=== PATIENT | female | born 1930 | race Caucasian/White ===

== ENCOUNTER 2017-10-04 18:49 | Emergency (ER) | payer MEDICARE, MEDICAID ==
--- NOTE | 2017-10-04 19:33 | NUR ---
BREATHING TREATMENT GIVEN BACK TO BACK FOR WHEEZING AND SOB. BREATHING TECH. FOR GGOOD DEPOSITION TO THE LUNGS.
[2017-10-04 19:44] LABS: HEMATOCRIT 41.7 % (37.0-47.0); HEMOGLOBIN 14.2 g/dl (12.0-16.0); IMMATURE GRANULOCYTES 0.7 % (0.0-1.0); MEAN CELL VOLUME 99.5 fL CALC (80.0-100.0); MEAN CORPUSCULAR HGB 33.9 pG CALC (26.0-32.0); MEAN CORPUSCULAR HGB CONC 34.1 g/L CALC (32.0-36.0); NEUT# 5.49 thou/uL (2.00-7.15); RED BLOOD COUNT 4.19 mill/uL (4.20-5.60); RED CELL DISTRI WIDTH 12.3 % (11.5-15.5)
[2017-10-04 19:50] LABS: ALBUMIN 4.6 g/dL (3.2-5.0); ALKALINE PHOSPHATASE 69 u/l (38-126); ANION GAP 17 (6-22 (CALC)); BILIRUBIN, TOTAL 0.7 mg/dL (0.0-1.4); BUN 19 mg/dL (8-23); BUN/CREATININE RATIO 18 (12-20 (CALC)); CARBON DIOXIDE 28 mmol/l (22-30); CHLORIDE 97 mmol/l (95-108); CREATININE 1.1 mg/dL (0.5-1.0); GFR 47 ML/MIN (>=60 (CALC)); GFR FOR AFR.AMER. 57 ML/MIN (>=60 (CALC)); POTASSIUM 3.3 mmol/l (3.5-5.1); SGOT/AST 33 u/l (9-36); SGPT/ALT 31 u/l (11-66); SODIUM 137 mmol/l (137-146); TOTAL PROTEIN 8.4 g/dL (6.3-8.2)
[2017-10-04] MEDS ORDERED: AMLODIPINE5 MG PO (19:50)
[2017-10-04] MEDS ORDERED: B121000 MCG PO (19:51)
[2017-10-04] MEDS ORDERED: HYDROCHLOROTH12.5 MG PO (19:52)
[2017-10-04] MEDS ORDERED: LOSARTAN POT25 MG PO (19:53)
[2017-10-04] MEDS ORDERED: MAGNESIUM400 M1 PO (19:54)
[2017-10-04] MEDS ORDERED: POTASSIUM CHLO10 MEQ PO (19:55)
[2017-10-04] MEDS ORDERED: VITAMIN D32000 UNIT PO (19:56)
[2017-10-04 20:02] LABS: MYOGLOBIN 151 ng/mL (0 - 62)
[2017-10-04] MEDS ORDERED: PREDNISONE10 MG PO (21:12)
[2017-10-04] MEDS ORDERED: VENTOLIN HFA IN (21:12)
[2017-10-04 21:31] VITALS: BP 140/70
== END 2017-10-04 21:30 | disposition home or self-care (01) ==
LOC: ED 18:49
PROVIDERS: Family Medicine
DX: J98.01 Acute bronchospasm (principal); R06.02 Shortness of breath; R05 Cough; R21 Rash and other nonspecific skin eruption

== ENCOUNTER 2019-05-14 06:22 | Observation (INO) | payer MEDICARE ==
[~2019-05-14] VITALS: Ht 154.9 cm; Wt 77.7 kg
[~2019-05-14 06:22] MED LIST: AMLODIPINE5 MG PO; B121000 MCG PO; HYDROCHLOROTH12.5 MG PO; LOSARTAN POT25 MG PO; MAGNESIUM400 M1 PO; POTASSIUM CHLO10 MEQ PO; PREDNISONE10 MG PO; VENTOLIN HFA IN; VITAMIN D32000 UNIT PO
--- NOTE | 2019-05-14 06:50 | NUR ---
PATIENT TO ROOM 15 VIA WHEELCHAIR. TRIAGE [id number] AT BEDSIDE. AWAITING MD PORRAS.
--- NOTE | 2019-05-14 07:25 | NUR ---
INITATED O2@2LPM VIA NCC FOR SOB AND O2 SAT 89%. PT TOLERATING WELL
[2019-05-14 08:21] LABS: HEMATOCRIT 41.6 % (37.0-47.0); HEMOGLOBIN 14.1 g/dl (12.0-16.0); IMMATURE GRANULOCYTES 0.6 % (0.0-5.0); MEAN CELL VOLUME 97.9 fL CALC (80.0-100.0); MEAN CORPUSCULAR HGB 33.2 pG CALC (26.0-32.0); MEAN CORPUSCULAR HGB CONC 33.9 g/L CALC (32.0-36.0); NEUT# 3.12 thou/uL (2.00-7.15); RED BLOOD COUNT 4.25 mill/uL (4.20-5.60)
[2019-05-14 08:36] LABS: ALBUMIN 4.4 g/dL (3.2-5.0); ALKALINE PHOSPHATASE 59 u/l (38-126); ANION GAP 16 (6-22 (CALC)); BILIRUBIN, TOTAL 0.6 mg/dL (0.0-1.4); BUN 22 mg/dL (8-23); BUN/CREATININE RATIO 17 (12-20 (CALC)); CARBON DIOXIDE 28 mmol/l (22-30); CHLORIDE 96 mmol/l (95-108); CREATININE 1.3 mg/dL (0.5-1.0); GFR 39 ML/MIN (>=60 (CALC)); GFR FOR AFR.AMER. 47 ML/MIN (>=60 (CALC)); LIPASE 52 u/l (23-300); POTASSIUM 3.8 mmol/l (3.5-5.1); SGOT/AST 42 u/l (9-36); SODIUM 137 mmol/l (137-146); TOTAL PROTEIN 7.6 g/dL (6.3-8.2)
--- NOTE | 2019-05-14 09:10 | NUR ---
PT RESTING WITH HOB ELEVATED IN NO DISTRESS. VSS. IV ABT INFUSING
--- NOTE | 2019-05-14 09:17 | NUR ---
MD AT BEDSIDE. PT AWARE SHE WILL BE ADMITTED TO THE HOSPITAL. ABX STARTED. PT REPORTS FEELING MUCH BETTER. AT BEDSIDE
--- NOTE | 2019-05-14 10:31 | NUR ---
BELONGINGS SENT HOME WITH PTS . PT AWARE OF WAIT FOR BED ASSIGNMENT. POSITIONED FOR COMFORT.
[2019-05-14 10:40] LABS: URINE BILIRUBIN - DIPSTICK NEGATIVE (NEGATIVE); URINE BLOOD DIPSTICK NEGATIVE (NEGATIVE); URINE COLOR YELLOW; URINE GLUCOSE - DIPSTICK NEGATIVE (NEGATIVE); URINE KETONE TRACE mg/dL (NEGATIVE); URINE LEUK ESTERASE NEGATIVE (NEGATIVE); URINE PH 5.5 (4.5-8.0); URINE PROTEIN - DIPSTICK NEGATIVE (NEG-TRACE); URINE SPECIFIC GRAVITY 1.025; URINE UROBILINOGEN - DIPSTICK 0.2 E.U./dL (0.2)
[2019-05-14 10:46] LABS: URINE NITRITE - DIPSTICK POSITIVE (Negative)
[2019-05-14 10:47] LABS: URINE BACTERIA MANY hpf; URINE EPITHELIAL CELLS MODERATE EPI/hpf (0-FEW)
--- NOTE | 2019-05-14 11:28 | NUR ---
PT RESTING COMFORTABLY WATCHING TV
--- NOTE | 2019-05-14 12:05 | NUR ---
MED SURG UNABLE TO TAKE REPORT AT THIS TIME
--- NOTE | 2019-05-14 12:25 | NUR ---
REPORT GIVEN TO RED OSHEAHEAD REFRIGERATION ENGINEER
--- NOTE | 2019-05-14 12:36 | NUR ---
PT ARRIVED FROM ER VIA STRETCEHR NO MASK IN [facility] WITH POSITIVE FOR THE FLU
--- NOTE | 2019-05-14 12:44 | NUR ---
PT TRANSPORTED TO MED SURG VIA STRETCHER, O2 AND TELEMETRY IN PLACE.
[2019-05-14 12:47] VITALS: BP 177/82
--- NOTE | 2019-05-14 13:55 | NUR ---
ASSESSMENT IS COMPLETED; IV SITE IS FREE FROM REDNESS OR EDEMA. HR IS REG,PULSES ARE STRONG X4, ABD IS SOFT WITH ACTIVE BS. BREATH SOUNDS ARE CLEAR,BILATERALLY, PT BECOMES SOB ON EXERTION. PT ALSO HAS POST NASAL DRIP. NO COUGHING PER PT. TELE MONITOR IN PLACE. CALL AVILES WITHIN REACH. CONTINUE TO OSBERVE AND MONITOR. PT IS POSITIVE FOR THE FLU UNDERSTANDS RE: DROPLET PRECAUTIONS.
[2019-05-14 15:15] VITALS: BP 141/78
--- NOTE | 2019-05-14 16:00 | NUR ---
PT IS RELAXING IN BED WITH NO DISTRESS NOTED. IV SITE IS FREE FROM REDNESS OR EDEMA.
[2019-05-14 19:26] VITALS: BP 141/71
--- NOTE | 2019-05-14 21:25 | NUR ---
PT MEDICATED AND ASSESSMENT COMPLETED AT THIS TIME. PT C/O SLIGHT HEADACHE, BUT DENIED TYLENOL NEED. MEDICATED FOR SLEEP AT THIS TIME ALSO PER REQUEST AND IVF REPLENISHED. NO S/O DISTRESS NOTED. CALL LIGHT IN HAND, LIGHTS ON LOW AND TV ON.
[2019-05-14 23:35] VITALS: BP 121/60
--- NOTE | 2019-05-15 01:50 | NUR ---
PT ASSISTED TO RESTROOM AND BACK TO BED. NO S/O DISTRESS NOTED. CALL LIGHT IN PLACE
[2019-05-15 03:25] VITALS: BP 143/59
--- NOTE | 2019-05-15 04:18 | NUR ---
PT IV PUMP CLEARED AT THIS TIME. IVF RUNNING TO 20LAC/SITE APPEARS HEALTHY. PT WAS SLEEPING I ENTERED THE ROOM. LIGHTS AND TV ARE ON. NO S/O DISTRESS NOTED.
[2019-05-15 07:46] VITALS: BP 136/80
--- NOTE | 2019-05-15 08:35 | NUR ---
ASSESSMENT DONE. PT IS A&O X3. TELE IN PLACE. IVF INFUSING WELL. LUNGS SOUND COARSE. SAFETY PRECAUTIONS REINFORCED AND CALL LIGHT IN REACH.
[2019-05-15 10:42] VITALS: BP 127/72
--- NOTE | 2019-05-15 11:15 | NUR ---
ASSISTED PT TO SIT IN CHAIR. PT STATED SHE FELT LITTLE BIT DIZZY BUT STATED ITS NOT NEW. PT DENIES PAIN AT THIS TIME. CALL LIGHT IN REACH.
[2019-05-15 15:15] VITALS: BP 142/81
--- NOTE | 2019-05-15 16:00 | NUR ---
PT IS RESTING IN BED . PT DENIES ANY NEEDS AT THIS TIME. CALL LIGHT IN REACH.
--- NOTE | 2019-05-15 19:05 | NUR ---
REPORT FROM LÁZARO OSHEA. PT SITTING UP IN BED. ALERT AND ORIENTED. NO APPARENT DISTRESS NOTED. PT DENIES ANY PAIN OR DISCOMFORT. IV SITE APPEARS HEALTHY. DISCUSSED POC. PT VERBALIZED UNDERSTANDING. CALL LIGHT WITHIN REACH. WILL CONTINUE TO MONITOR.
[2019-05-15 20:00] VITALS: BP 138/74
--- NOTE | 2019-05-15 21:03 | NUR ---
PT MEDICATED FOR MILD BACK PAIN AND SLEEPING PILL PER REQUEST. PT DENIES ANY OTHER WANTS OR NEEDS. CALL LIGHT WITHIN REACH. WILL CONTINUE TO MONITOR.
[2019-05-16] VITALS: BP 121/76
--- NOTE | 2019-05-16 01:22 | NUR ---
PT RESTING IN BED WITH EYES CLOSED. NO APPARENT DISTRESS NOTED. CALL LIGHT WITHIN REACH. WILL CONTINUE TO MONITOR.
--- NOTE | 2019-05-16 04:21 | NUR ---
PT RESTING IN BED WITH EYES CLOSED. NO APPARENT DISTRESS NOTED. CALL LIGHT WITHIN REACH. WILL CONTINUE TO MONITOR.
[2019-05-16 04:30] VITALS: BP 137/70
[2019-05-16 05:05] LABS: HEMATOCRIT 36.9 % (37.0-47.0); HEMOGLOBIN 12.6 g/dl (12.0-16.0); IMMATURE GRANULOCYTES 0.7 % (0.0-5.0); MEAN CELL VOLUME 98.1 fL CALC (80.0-100.0); MEAN CORPUSCULAR HGB 33.5 pG CALC (26.0-32.0); MEAN CORPUSCULAR HGB CONC 34.1 g/L CALC (32.0-36.0); NEUT# 1.46 thou/uL (2.00-7.15); RED BLOOD COUNT 3.76 mill/uL (4.20-5.60); RED CELL DISTRI WIDTH 12.2 % (11.5-15.5)
[2019-05-16 05:23] LABS: ANION GAP 13 (6-22 (CALC)); BUN 14 mg/dL (8-23); BUN/CREATININE RATIO 14 (12-20 (CALC)); CARBON DIOXIDE 25 mmol/l (22-30); CHLORIDE 103 mmol/l (95-108); GFR 53 ML/MIN (>=60 (CALC)); GFR FOR AFR.AMER. > 60 ML/MIN (>=60 (CALC)); MAGNESIUM 1.5 mg/dL (1.6-2.3); POTASSIUM 3.6 mmol/l (3.5-5.1); SODIUM 137 mmol/l (137-146)
--- NOTE | 2019-05-16 07:50 | NUR ---
ASSESSMENT IS COMPLETED: IV SITE IS FREE FROM REDNESS OR EDEMA. HR IS REG,PULSES ARE STRONG X4, ABD IS SOFT WITH ACTIVE BS, BREATH SOUNDS ARE SCATTERED WHEEZES NOTED.TELE MONITOR IN PLACE. CONTINUE TO OSBERVE AND MONITOR.
[2019-05-16 11:00] VITALS: BP 125/63
--- NOTE | 2019-05-16 11:01 | NUR ---
pt c/o loose stools from abt. gave medication for nausea. continue to observe and monitor.
--- NOTE | 2019-05-16 12:00 | NUR ---
PT IS RELAXING IN BED WITH NO DISTRESS NOTED. IV SITE IS FREE FROM REDNESS OR EDEMA. PT AMBULATED IN THE DIOP WITH NO DISTRESS NOTED. O2 WALK WITH 92% ON RA. TOLERATED WELL.
[2019-05-16] MEDS ORDERED: TAMIFLU SUSP 6MG/ML PO (12:28)
[2019-05-16] MEDS ORDERED: LEVAQUIN250 MG PO (12:29)
[2019-05-16] MEDS ORDERED: ZOFRAN4 MG/TAB PO (12:30)
[2019-05-16 15:18] VITALS: BP 147/74
--- NOTE | 2019-05-16 15:59 | NUR ---
IV SITE DISCONTINUED CATHETER INTACT NO REDNESS OR EDEMA. FAMILY IN THE ROOM.
--- NOTE | 2019-05-16 16:29 | NUR ---
DISCHARGE INSTRUCTIONS GIVEN AND VERBALIZED UNDERSTANDING. FAMILY IN TO VISIT WITH PT, TRANSPORTED VIA WC ALL BELONGINGS SENT WITH PT. PT VERY APPRECIATIVE OF ALL OF THE STAFF ASSISTANCE. CONTINUE TO OSBERVE AND MONITOR. Discharge instructions given. Patient verbalizes understanding of same. Discharged in stable condition via Wheelchair to Home with family. All belongings sent with pt.
--- NOTE | 2019-05-21 13:44 | NUR ---
Pneumonia D/C call completed 05/21/19 1:15 pm. Pt. much improved. Obtained medication prescribed on discharge and is taking without issue. Follow up appt scheduled with PCP on 05/29. Very complimentary of care by staff and physician. No needs expressed.
== END 2019-05-16 16:20 | disposition home or self-care (01) ==
LOC: ED 06:22 → ED-I 09:05 → ED 09:53 → MS2 09:54
PROVIDERS: Family Medicine; Nurse Practitioner Family; ADMIT Internal Medicine; ATTEND Internal Medicine
DX: J10.00 Influenza due to other identified influenza virus with unspecified type of pneumonia (principal); N39.0 Urinary tract infection, site not specified; R09.02 Hypoxemia; I12.9 Hypertensive chronic kidney disease with stage 1 through stage 4 chronic kidney disease, or unspecified chronic kidney disease; N18.3 Chronic kidney disease, stage 3 (moderate); M19.90 Unspecified osteoarthritis, unspecified site; N39.3 Stress incontinence (female) (male); B96.20 Unspecified Escherichia coli [E. coli] as the cause of diseases classified elsewhere
CPT/HCPCS: G0378; J3475

== ENCOUNTER 2020-11-12 04:05 | Emergency (ER) | payer MEDICARE ==
[~2020-11-12] VITALS: Ht 154.9 cm; Wt 82.0 kg
[~2020-11-12 04:05] MED LIST changes: +AMLODIPINE BESY10 MG PO; -AMLODIPINE5 MG PO; +COZAAR50 MG PO; +LEVAQUIN250 MG PO; -LOSARTAN POT25 MG PO; +TAMIFLU SUSP 6MG/ML PO; +ZOFRAN4 MG/TAB PO
[2020-11-12] MEDS ORDERED: BENADRYL 25MG C25 MG PO (04:36)
[2020-11-12 05:17] LABS: HEMATOCRIT 41.3 % (37.0-47.0); HEMOGLOBIN 14.2 g/dl (12.0-16.0); IMMATURE GRANULOCYTES 0.8 % (0.0-5.0); MEAN CELL VOLUME 99.5 fL CALC (80.0-100.0); MEAN CORPUSCULAR HGB 34.2 pG CALC (26.0-32.0); MEAN CORPUSCULAR HGB CONC 34.4 g/dL CAL (32.0-36.0); NEUT# 5.95 thou/uL (2.00-7.15); RED BLOOD COUNT 4.15 mill/uL (4.20-5.60); RED CELL DISTRI WIDTH 11.7 % (11.5-15.5)
[2020-11-12 05:35] LABS: D-DIMER 0.8 mg/L (0.19-0.60)
[2020-11-12 05:36] LABS: ALBUMIN 4.6 g/dL (3.2-5.0); ALKALINE PHOSPHATASE 84 u/l (38-126); ANION GAP 15 (6-22 (CALC)); BILIRUBIN, TOTAL 0.6 mg/dL (0.0-1.4); BUN 22 mg/dL (8-23); BUN/CREATININE RATIO 16 (12-20 (CALC)); CARBON DIOXIDE 26 mmol/l (22-30); CHLORIDE 99 mmol/l (95-108); CREATININE 1.4 mg/dL (0.5-1.0); GFR 35 ML/MIN (>=60 (CALC)); GFR FOR AFR.AMER. 43 ML/MIN (>=60 (CALC)); SGOT/AST 43 u/l (9-36); SODIUM 136 mmol/l (137-146); TOTAL PROTEIN 7.9 g/dL (6.3-8.2)
[2020-11-12 05:48] LABS: MYOGLOBIN 75 ng/mL (0 - 62)
[2020-11-12 05:50] LABS: ACT PARTIAL THROMBO TIME 24.5 SECONDS (20.0-32.5); INTERNATIONAL NORMALIZED RATIO 0.9 RATIO (0.7-1.3); PROTHROMBIN TIME 9.9 SECONDS (9.0-12.5)
[2020-11-12 10:40] VITALS: BP 139/72
[2020-11-12] MEDS ORDERED: PROVENTIL0.083 % IN (10:40)
[2020-11-12 10:59] LABS: URINE BILIRUBIN - DIPSTICK NEGATIVE (NEGATIVE); URINE BLOOD DIPSTICK NEGATIVE (NEGATIVE); URINE COLOR YELLOW; URINE GLUCOSE - DIPSTICK NEGATIVE (NEGATIVE); URINE KETONE NEGATIVE (NEGATIVE); URINE LEUK ESTERASE TRACE (NEGATIVE); URINE PROTEIN - DIPSTICK NEGATIVE (NEG-TRACE); URINE UROBILINOGEN - DIPSTICK 0.2 E.U./dL (0.2)
[2020-11-12 11:03] LABS: URINE NITRITE - DIPSTICK NEGATIVE (Negative)
--- NOTE | 2020-11-14 09:14 | NUR ---
PRELIM BLOOD CX SHOWS GRAM POSITIVE COCCI IN 1/4, LIKELY CONTAMINANT. REPORTED TO DR MCADAMS. NO NEW ORDERS RECD, WILL F/U WITH FINAL
== END 2020-11-12 10:59 | disposition home or self-care (01) ==
LOC: ED 04:05
PROVIDERS: Family Medicine
DX: R06.00 Dyspnea, unspecified (principal); I10 Essential (primary) hypertension; E66.9 Obesity, unspecified; Z20.822 Contact with and (suspected) exposure to COVID-19
CPT/HCPCS: J2060; Q9967

== ENCOUNTER 2021-04-25 16:13 | Emergency (ER) | payer MEDICARE, MEDICAID ==
[~2021-04-25] VITALS: Ht 154.9 cm; Wt 73.0 kg
[~2021-04-25 16:13] MED LIST changes: +BENADRYL 25MG C25 MG PO; +PROVENTIL0.083 % IN
[2021-04-25 18:09] LABS: HEMOGLOBIN 13.5 g/dl (12.0-16.0); IMMATURE GRANULOCYTES 0.4 % (0.0-5.0); MEAN CELL VOLUME 98.5 fL CALC (80.0-100.0); MEAN CORPUSCULAR HGB 34.1 pG CALC (26.0-32.0); MEAN CORPUSCULAR HGB CONC 34.6 g/dL CAL (32.0-36.0); NEUT# 3.14 thou/uL (2.00-7.15); RED BLOOD COUNT 3.96 mill/uL (4.20-5.60); RED CELL DISTRI WIDTH 12.3 % (11.5-15.5)
[2021-04-25 18:24] LABS: ALKALINE PHOSPHATASE 65 u/l (38-126); AMYLASE 82 u/l (30-110); ANION GAP 18 (6-22 (CALC)); BILIRUBIN, TOTAL 0.8 mg/dL (0.0-1.4); BUN 24 mg/dL (8-23); BUN/CREATININE RATIO 20 (12-20 (CALC)); CARBON DIOXIDE 24 mmol/l (22-30); CHLORIDE 94 mmol/l (95-108); CREATININE 1.2 mg/dL (0.5-1.0); GFR 42 ML/MIN (>=60 (CALC)); GFR FOR AFR.AMER. 51 ML/MIN (>=60 (CALC)); LIPASE 80 u/l (23-300); MAGNESIUM 1.6 mg/dL (1.6-2.3); POTASSIUM 3.7 mmol/l (3.5-5.1); SGOT/AST 45 u/l (9-36); SODIUM 132 mmol/l (137-146); TOTAL PROTEIN 7.1 g/dL (6.3-8.2)
[2021-04-25 18:25] LABS: ACT PARTIAL THROMBO TIME 26.4 SECONDS (20.0-32.5); INTERNATIONAL NORMALIZED RATIO 0.9 RATIO (0.7-1.3); PROTHROMBIN TIME 9.7 SECONDS (9.0-12.5)
[2021-04-25 19:39] LABS: URINE BILIRUBIN - DIPSTICK NEGATIVE (NEGATIVE); URINE BLOOD DIPSTICK NEGATIVE (NEGATIVE); URINE COLOR YELLOW; URINE GLUCOSE - DIPSTICK NEGATIVE (NEGATIVE); URINE KETONE 15 mg/dL (NEGATIVE); URINE LEUK ESTERASE NEGATIVE (NEGATIVE); URINE PROTEIN - DIPSTICK NEGATIVE (NEG-TRACE); URINE SPECIFIC GRAVITY 1.015; URINE UROBILINOGEN - DIPSTICK 0.2 E.U./dL (0.2)
[2021-04-25 19:42] LABS: URINE NITRITE - DIPSTICK NEGATIVE (Negative)
[2021-04-25] MEDS ORDERED: METRONIDAZOLE500 MG PO (20:54)
[2021-04-25] MEDS ORDERED: CIPROFLOXACN500 MG PO (20:54)
[2021-04-25 22:55] VITALS: BP 146/65
== END 2021-04-25 23:15 | disposition home or self-care (01) ==
LOC: ED 16:13
DX: U07.1 COVID-19 (principal); K57.32 Diverticulitis of large intestine without perforation or abscess without bleeding; I10 Essential (primary) hypertension
CPT/HCPCS: Q9967

== ENCOUNTER 2022-03-01 17:29 | Emergency (ER) | payer MEDICARE ==
[~2022-03-01] VITALS: Ht 154.9 cm; Wt 70.0 kg
[~2022-03-01 17:29] MED LIST changes: +CIPROFLOXACN500 MG PO; +METRONIDAZOLE500 MG PO
[2022-03-01 17:54] VITALS: BP 150/85
[2022-03-01] MEDS ORDERED: AMOX/K CLAV875 M1 PO ×2 (18:27→19:03)
[2022-03-01 18:30] VITALS: BP 150/85
== END 2022-03-01 19:28 | disposition home or self-care (01) ==
LOC: ED 17:29
DX: S40.872A Other superficial bite of left upper arm, initial encounter (principal); I10 Essential (primary) hypertension; W54.0XXA Bitten by dog, initial encounter; Y93.89 Activity, other specified; Y92.007 Garden or yard of unspecified non-institutional (private) residence as the place of occurrence of the external cause

== ENCOUNTER 2022-03-19 18:02 | Emergency (ER) | payer MEDICARE ==
[2022-03-19] VITALS (8 sets, daily range): BP systolic 137–163; BP diastolic 69–95
[~2022-03-19] VITALS: Ht 154.9 cm; Wt 80.0 kg
[~2022-03-19 18:02] MED LIST changes: +AMOX/K CLAV875 M1 PO
[2022-03-19 19:21] LABS: HEMATOCRIT 39.3 % (37.0-47.0); HEMOGLOBIN 14.2 g/dl (12.0-16.0); IMMATURE GRANULOCYTES 0.2 % (0.0-5.0); MEAN CELL VOLUME 96.6 fL CALC (80.0-100.0); MEAN CORPUSCULAR HGB 34.9 pG CALC (26.0-32.0); MEAN CORPUSCULAR HGB CONC 36.1 g/dL CAL (32.0-36.0); NEUT# 14.97 thou/uL (2.00-7.15); RED BLOOD COUNT 4.07 mill/uL (4.20-5.60)
[2022-03-19 19:48] LABS: ALBUMIN 4.5 g/dL (3.2-5.0); BILIRUBIN, TOTAL 0.8 mg/dL (0.0-1.4); CREATININE 1.2 mg/dL (0.5-1.0); POTASSIUM 3.7 mmol/l (3.5-5.1); TOTAL PROTEIN 7.3 g/dL (6.3-8.2)
[2022-03-19 20:19] LABS: TSH, 3RD GENERATION 1.36 uIU/mL (0.47 - 4.68)
== END 2022-03-19 21:19 | disposition home or self-care (01) ==
LOC: ED 18:02
PROVIDERS: Family Medicine
DX: K59.00 Constipation, unspecified (principal); I10 Essential (primary) hypertension

== ENCOUNTER 2022-07-09 11:59 | Emergency (ER) | payer MEDICARE ==
[~2022-07-09] VITALS: Ht 154.9 cm; Wt 70.3 kg
[2022-07-09 13:07] VITALS: BP 146/68
[2022-07-09] MEDS ORDERED: TRAMADOL HYDROC50 M1 PO (14:02)
[2022-07-09] MEDS ORDERED: VOLTAREN1%GEL TOP (14:04)
[2022-07-09 14:48] VITALS: BP 146/68
== END 2022-07-09 14:50 | disposition home or self-care (01) ==
LOC: ED 11:59
DX: M17.11 Unilateral primary osteoarthritis, right knee (principal); I10 Essential (primary) hypertension